=== PATIENT | male | born 1985 | race Caucasian/White ===

== ENCOUNTER 2018-07-17 18:32 | Emergency (ER) | payer OTHER ==
--- NOTE | 2018-07-17 19:37 | ERPHSYRPT ---
- History of Present Illness Time Seen by Provider: 07/17/18 19:24 Source: patient Exam Limitations: no limitations Patient Subjective Stated Complaint: right hand pain, thinks he hit it while working and may have broken it Triage Nursing Assessment: Pt stated that he hit his right hand at work with a sledge hammer, hand is swollen, pulses good, capillary refill good, hypertensive , rates pain 10/26 Physician History: 32-year-old white male arrives with complaint of pain in his right index finger and the second right metacarpal. Patient states he struck his hand with a hammer at home. Denies other complaints. Past medical history negative past surgical history hand surgery both hands after an engine fell on his hands Occurred: just prior to arrival (one hour prior to arriva) Method of Injury: direct blow (hit right hand was sledge hammer) Severity of Pain-Max: moderate Severity of Pain-Current: mild Extremities Pain Location: hand: right, 2nd finger: right Modifying Factors: Improves With: nothing Associated Symptoms: none Allergies/Adverse Reactions: No Known Drug Allergies Allergy (Verified 07/17/18 18:46) Home Medications: No Reportable Medications [No Reported Medications] 07/17/18 [History] Hx Tetanus, Diphtheria Vaccination/Date Given: No (2 years ago) - Review of Systems Constitutional: No Fever, No Chills Eyes: No Symptoms Ears, Nose, & Throat: No Symptoms Respiratory: No Cough, No Dyspnea Cardiac: No Chest Pain, No Edema, No Syncope Abdominal/Gastrointestinal: No Abdominal Pain, No Nausea, No Vomiting, No Diarrhea Genitourinary Symptoms: No Dysuria Musculoskeletal: Other (pain right hand right second finger) Skin: No Rash Neurological: No Dizziness, No Focal Weakness, No Sensory Changes Psychological: No Symptoms Endocrine: No Symptoms All Other Systems: Reviewed and Negative - Past Medical History Pertinent Past Medical History: No - Past Surgical History Past Surgical History: Yes Musculoskeletal: Orthopedic Surgery Other Surgical History: hand surgery on both hands due to an engine falling on them - Social History Smoking Status: Current every day smoker How long have you smoked: 14 years Exposure to second hand smoke: Yes Drug Use: none Patient Lives Alone: No - Nursing Vital Signs Nursing Vital Signs: Initial Vital Signs Temperature 98.3 F 07/17/18 18:36 Pulse Rate 79 07/17/18 18:36 Blood Pressure 155/103 07/17/18 18:36 O2 Sat by Pulse Oximetry 100 07/17/18 18:36 Pain Scale Pain Intensity 7 - Physical Exam General Appearance: mild distress Eyes, Ears, Nose, Throat Exam: moist mucous membranes Neck Exam: normal inspection Cardiovascular/Respiratory Exam: chest non-tender, normal breath sounds, regular rate/rhythm, no respiratory distress Abdominal Exam: non-tender, No guarding Back Exam: normal inspection, No vertebral tenderness Shoulder Exam: normal inspection, non-tender, no evidence of injury, normal ROM Elbow/Forearm Exam: normal inspection, non-tender, normal ROM Wrist Exam: normal inspection, non-tender, no evidence of injury Hand Exam: No normal inspection (right hand full range of motion, tender with palpation overlying the right distal second metacarpal and proximal right index finger) Neuro/Tendon Exam: normal sensation, normal motor functions Mental Status Exam: alert, oriented x 3, cooperative Skin Exam: normal color, warm, dry SpO2 Interpretation: normal (100%) SpO2: 100 - Radiology Exams Right Hand X-ray Interpretation: Interpreted by me (nondisplaced fracture distal right second proximal phalanx) Ordered Tests: Active Orders 24 hr Category Date Time Status HAND (MINIMUM 3 VIEWS) Stat Exams 07/17/18 18:51 Taken - Progress Progress: improved Progress Note: 07/17/18 19:36 32-year-old white male with history of bilateral hand fractures in the past. Arrives with complaint of pain in his right hand overlying the distal right second metacarpal and the proximal right second proximal phalanx he states he struck his hand with a sledgehammer. I've offered the patient pain medication he does not want any. X-ray on one view that shows what appears to be a oblique fracture running through the distal proximal phalanx of the index finger. Patient has full range of motion to all fingers sensation intact to all fingers good capillary refill to all fingers. Patient does not want any pain medications. Will go ahead and have nurse place a splint. . - Departure Departure Disposition: Home Clinical Impression: fracture right second proximal phalanx Condition: Fair Critical Care Time: No Referrals: Megan STAPLETON [Primary Care Provider] - Instructions: Finger Fracture Additional Instructions: Return home. Ice to right hand 24-48 hours. Advil every 6 hours as needed for pain. Follow-up with your family doctor or [facility] tomorrow morning at 8:30 AM. Return for acute distress or for severe symptoms. Your x-rays have been preliminarily read they will be reread tomorrow you will be notified if any discrepancies are noted.
[2018-07-17 19:50] VITALS: BP 144/102; PULSE 72; O2SAT 96
--- NOTE | 2018-07-18 08:39 | XRAY ---
Indication: 2nd finger crush injury. Comparison: None 3 views of the right hand obtained. No bony, articular, or soft tissue abnormalities.
== END 2018-07-17 19:53 | disposition home or self-care (01) ==
LOC: ED 18:32
DX: S62.610A Displaced fracture of proximal phalanx of right index finger, initial encounter for closed fracture (principal); M79.641 Pain in right hand; W22.8XXA Striking against or struck by other objects, initial encounter
CPT/HCPCS: 73130; 99283

== ENCOUNTER 2019-11-06 21:00 | Emergency (ER) | payer MEDICAID, OTHER ==
--- NOTE | 2019-11-06 21:03 | ERPHSYRPT ---
- History of Present Illness Time Seen by Provider: 11/06/19 21:03 Source: patient, family Exam Limitations: no limitations Physician History: This is a right-handed 34-year-old white male who punched a glass window prior to arrival. Patient punched through the glass window with his left hand. Patient's tetanus status is approximately 3 to 4 years old. Patient is refusing an x-ray of his left hand. There is oozing from 3 separate lacerations sites from his left hand. Occurred: just prior to arrival Method of Injury: direct blow (Punched a glass window and broke it) Quality: sharpness, stabbing Severity of Pain-Max: moderate Severity of Pain-Current: moderate Extremities Pain Location: wrist: left, hand: left Modifying Factors: Improves With: movement Associated Symptoms: none Allergies/Adverse Reactions: No Known Drug Allergies Allergy (Verified 11/06/19 21:14) Hx Tetanus, Diphtheria Vaccination/Date Given: No (2 years ago) Travel Risk - International Travel Have you traveled outside of the country in past 3 weeks: No - Coronavirus Screening Are you exhibiting any of the following symptoms?: No Close contact with a COVID-19 positive Pt in past 14-21 Days: No - Review of Systems Constitutional: No Symptoms Eyes: No Symptoms Ears, Nose, & Throat: No Symptoms Respiratory: No Symptoms Cardiac: No Symptoms Abdominal/Gastrointestinal: No Symptoms Genitourinary Symptoms: No Symptoms Musculoskeletal: Injury (Left hand and wrist) Skin: Other Neurological: No Symptoms (Laceration x3 left hand and wrist) Psychological: No Symptoms Endocrine: No Symptoms Hematologic/Lymphatic: No Symptoms Immunological/Allergic: No Symptoms All Other Systems: Reviewed and Negative - Past Medical History Pertinent Past Medical History: No Neurological History: No Pertinent History ENT History: No Pertinent History Cardiac History: No Pertinent History Respiratory History: No Pertinent History Endocrine Medical History: No Pertinent History Musculoskeletal History: No Pertinent History GI Medical History: No Pertinent History History: No Pertinent History Psycho-Social History: No Pertinent History Male Reproductive Disorders: No Pertinent History - Past Surgical History Past Surgical History: Yes Neuro Surgical History: No Pertinent History Cardiac: No Pertinent History Respiratory: No Pertinent History Gastrointestinal: No Pertinent History Genitourinary: No Pertinent History Musculoskeletal: Orthopedic Surgery Male Surgical History: No Pertinent History Other Surgical History: hand surgery on both hands due to an engine falling on them - Social History Smoking Status: Current every day smoker How long have you smoked: 14 years Exposure to second hand smoke: Yes Drug Use: none Patient Lives Alone: No - Nursing Vital Signs Nursing Vital Signs: Initial Vital Signs Temperature 98.4 F 11/06/19 21:04 Pulse Rate 74 11/06/19 21:04 Respiratory Rate 22 11/06/19 21:04 Blood Pressure 127/77 11/06/19 21:04 O2 Sat by Pulse Oximetry 97 11/06/19 21:04 Pain Scale Pain Intensity 10 - Physical Exam General Appearance: no apparent distress, alert, anxiety Eyes, Ears, Nose, Throat Exam: normal ENT inspection, moist mucous membranes Neck Exam: normal inspection, non-tender, supple, full range of motion Cardiovascular/Respiratory Exam: chest non-tender, no respiratory distress Abdominal Exam: non-tender Back Exam: normal inspection, normal range of motion, No CVA tenderness, No vertebral tenderness Shoulder Exam: normal inspection, non-tender, no evidence of injury, normal ROM Elbow/Forearm Exam: normal inspection, non-tender, no evidence of injury, normal ROM Wrist Exam: normal ROM, pain, soft tissue tenderness (Laceration measuring approximately 4 cm horizontally oriented. No evidence of tendon injury no evidence of foreign body. No active bleeding except for mild ooze from the skin edge. A second half centimeter laceration was present at the dorsal aspect of the proximal wrist. No foreign body mild sk) Hand Exam: normal ROM, laceration (Approximately 3 cm laceration to the ulnar aspect of the proximal palm. There is no foreign body no active bleeding.) Neuro/Tendon Exam: normal sensation, normal motor functions, normal tendon functions, responds to pain, no evidence tendon injury Mental Status Exam: alert, oriented x 3, cooperative Skin Exam: laceration SpO2 Interpretation: normal O2 Delivery: Room Air Procedures - Laceration/Wound Repair Left Wrist Wound Location: Left, wrist ( and left hand. Total of 3 lacerations are present. Total length is a proximally 7-1/2 cm.) Wound's Depth, Shape: superficial, linear, into subcut Wound Explored: clean (No foreign body in bloodless field to base.) Irrigated: Yes Hibiclens Prep: Yes Anesthesia: 1% Lidocaine Volume Anesthetic (ccs): 10 Wound Repaired With: sutures Suture Size/Type: 4-0, prolene Number of Sutures: 12 (A total of 12 Prolene sutures were placed.) Layer Closure?: No Sterile Dressing Applied?: Yes Progress: 11/06/19 21:55 No complications patient told procedure well. Patient refusing x-ray. - Course Nursing assessment & vital signs reviewed: Yes Ordered Tests: Medication Summary Discontinued Medications Generic Name Dose Route Start Last Admin Trade Name Han PRN Reason Stop Dose Admin Hydrocodone Bitart/Acetaminophen 1 tab 11/06/19 21:46 [place] 10/325 Mg Tablet PO 11/06/19 21:47 STAT ONE Lidocaine HCl Confirm 11/06/19 21:09 Xylocaine 1% Hcl 20 Ml Mdv Administered 11/06/19 21:10 Dose 10 ml .ROUTE .STK-MED ONE - Progress Progress: improved, pain not gone completely, re-examined Counseled pt/family regarding: diagnosis, need for follow-up - Departure Departure Disposition: Home Clinical Impression: Laceration of left hand, Laceration of left wrist Condition: Stable Critical Care Time: No Referrals: Megan STAPLETON [NON-STAFF PHY W/O PRIVILEGES] - Additional Instructions: Keep current dressing in place for 24 hours. After 24 hours may remove all the dressings and wash the sites with soap and water. After washing, place a thin layer of antibiotic ointment and redress the area. Suture removal in 8 to 10 days. Use Tylenol and ibuprofen for pain. Apply ice pack to the area 3 times a day for 3 days. Prescriptions: Hydrocodone/APAP 5/325 [[place] 5/325 mg] 1 each PO Q8H PRN PRN #5 tablet MDD 3 PRN Reason: Pain
[2019-11-06 21:09] VITALS: BP 127/77; PULSE 74; O2SAT 97
[2019-11-06] MEDS ORDERED: XYLOCAINE 1% HCL 20 ML MDV ONE (21:09)
[2019-11-06] MEDS ORDERED: NORCO 5/325 MG ONE (22:07)
[2019-11-06] MEDS ORDERED: Norco 10/325 MG Tablet ONE (22:07)
[2019-11-06] MEDS: Norco 10/325 MG Tablet PO ONE (22:08)
[2019-11-06] MEDS: NORCO 5/325 MG PO ONE (22:08)
[2019-11-06] MEDS ORDERED: BACIGUENT PACKET ONE (22:17)
[2019-11-06] MEDS: XYLOCAINE 1% HCL 20 ML MDV IJ ONE (22:18)
[2019-11-06] MEDS: BACIGUENT PACKET TP ONE (22:18)
== END 2019-11-06 22:28 | disposition home or self-care (01) ==
LOC: ED 21:00
DX: S61.412A Laceration without foreign body of left hand, initial encounter (principal); S61.512A Laceration without foreign body of left wrist, initial encounter; W25.XXXA Contact with sharp glass, initial encounter; Y93.89 Activity, other specified; Y92.89 Other specified places as the place of occurrence of the external cause
CPT/HCPCS: 12014; 96372; 99283; A9270-GY

== ENCOUNTER 2022-04-14 04:19 | Emergency (ER) | payer SELFPAY ==
--- NOTE | 2022-04-14 04:35 | ERPHSYRPT ---
- History of Present Illness Time Seen by Provider: 04/14/22 04:34 Source: patient Exam Limitations: no limitations Physician History: 36yo M presents to the ER w/ cough, congestion and sore throat for the past 3 days. He denies F/C/N/V, CP or SOB. He denies sick contacts. No otc meds tried. Timing/Duration: day(s) (3) Cough Quality/Degree: moderate, productive cough, sputum Possible Cause: unknown cause Modifying Factors: Improves With: activity, coughing, deep breath, exertion Associated Symptoms: fever, chills, chest pain/soreness, cough, No earache Allergies/Adverse Reactions: No Known Drug Allergies Allergy (Verified 04/14/22 04:24) Hx Tetanus, Diphtheria Vaccination/Date Given: No (2 years ago) Hx Influenza Vaccination/Date Given: No Hx Pneumococcal Vaccination/Date Given: No - Review of Systems Constitutional: Fever, Chills, Fatigue, Weakness Eyes: No Symptoms Ears, Nose, & Throat: Nose Congestion, Nose Discharge, Sinus Drainage, Throat Pain, Painful Swallowing, No Ear Pain, No Ear Discharge, No Hearing Changes Respiratory: Cough, No Dyspnea, No Dyspnea on Exertion ([place]), No Wheezing Cardiac: No Edema, No Orthopnea, No PND Abdominal/Gastrointestinal: Nausea, No Abdominal Pain, No Vomiting Genitourinary Symptoms: No Symptoms Musculoskeletal: No Symptoms Skin: No Symptoms Neurological: Irritability, Lethargy Psychological: No Symptoms - Past Medical History Pertinent Past Medical History: No Neurological History: No Pertinent History ENT History: No Pertinent History Cardiac History: No Pertinent History Respiratory History: No Pertinent History Endocrine Medical History: No Pertinent History Musculoskeletal History: No Pertinent History GI Medical History: No Pertinent History History: No Pertinent History Psycho-Social History: No Pertinent History Male Reproductive Disorders: No Pertinent History - Past Surgical History Past Surgical History: Yes Neuro Surgical History: No Pertinent History Cardiac: No Pertinent History Respiratory: No Pertinent History Gastrointestinal: No Pertinent History Genitourinary: No Pertinent History Musculoskeletal: Orthopedic Surgery Male Surgical History: No Pertinent History Other Surgical History: hand surgery on both hands due to an engine falling on them - Social History Smoking Status: Current every day smoker How long have you smoked: 14 years Exposure to second hand smoke: Yes Drug Use: none Patient Lives Alone: No - Nursing Vital Signs Nursing Vital Signs: Initial Vital Signs Temperature 99.8 F 04/14/22 04:25 Pulse Rate 91 H 04/14/22 04:25 Respiratory Rate 18 04/14/22 04:25 Blood Pressure 137/77 04/14/22 04:25 O2 Sat by Pulse Oximetry 99 04/14/22 04:25 Pain Scale Pain Intensity 3 - Physical Exam General Appearance: no apparent distress Eye Exam: PERRL/EOMI Ears, Nose, Throat Exam: TMs normal, pharyngeal erythema, No tonsillar exudate Neck Exam: non-tender, full range of motion, lymphadenopathy Respiratory Exam: rhonchi Cardiovascular Exam: regular rate/rhythm, capillary refill <2 sec, No murmur, No edema Gastrointestinal/Abdomen Exam: soft, No tenderness, No distention Extremity Exam: normal inspection, No tani's sign, No pedal edema Neurologic Exam: alert, oriented x 3, cooperative Skin Exam: normal color, warm, dry SpO2 Interpretation: normal O2 Delivery: Room Air - Course Nursing assessment & vital signs reviewed: Yes - Radiology Exams Chest X-ray Interpretation: Interpreted by me, Negative, No Pneumonia, Nml Heart Size, No Infiltrates Ordered Tests: Medication Summary Discontinued Medications Generic Name Dose Route Start Last Admin Trade Name Freq PRN Reason Stop Dose Admin Guaifenesin/Dextromethorphan 10 ml 04/14/22 05:01 04/14/22 05:20 Guaifenesin/D-Methorphan Hb 118 Ml Syrup PO 04/14/22 05:02 10 ml STAT ONE Administration Lab/Rad Data: Laboratory Result Diagrams 04/14/22 05:15 04/14/22 05:15 Laboratory Results 04/14/22 04/14/22 04/14/22 Range/Units 05:19 05:15 05:15 WBC (4.0-10.5) x10^3/uL RBC (4.1-5.6) x10^6/uL Hgb (12.5-18.0) g/dL Hct (42-50) % MCV (78-100) fL MCH (26-32) pg MCHC (32-36) g/dL RDW (11.5-14.0) % Plt Count (150-450) x10^3/uL MPV (7.5-11.0) fL Gran % (36.0-66.0) % Immature Gran % (Auto) (0.00-0.4) % Nucleat RBC Rel Count (0.00-0.1) % Eos # (Auto) (0-0.5) x10^3/uL Immature Gran # (Auto) (0.00-0.03) x10^3u/L Absolute Lymphs (auto) (1.0-4.6) x10^3/uL Absolute Monos (auto) (0.0-1.3) x10^3/uL Absolute Nucleated RBC (0.00-0.01) x10^3u/L Lymphocytes % (24.0-44.0) % Monocytes % (0.0-12.0) % Eosinophils % (0.00-5.0) % Basophils % (0.0-0.4) % Absolute Granulocytes (1.4-6.9) x10^3/uL Basophils # (0-0.4) x10^3/uL Sodium 137 (137-145) mmol/L Potassium 4.0 (3.5-5.1) mmol/L Chloride 105 (98-107) mmol/L Carbon Dioxide 27 (22-30) mmol/L Anion Gap 10.1 (5-15) MEQ/L BUN 13 (9-20) mg/dL Creatinine 0.84 (0.66-1.25) mg/dL Estimated GFR > 60.0 ML/MIN Glucose 141 H (74-106) mg/dL Lactic Acid 0.9 (0.4-2.0) Calcium 8.2 L (8.4-10.2) mg/dL Total Bilirubin 0.40 (0.2-1.3) mg/dL AST 25 (17-59) U/L ALT 21 (0-50) U/L Alkaline Phosphatase 75 (38-126) U/L Serum Total Protein 6.5 (6.3-8.2) g/dL Albumin 3.8 (3.5-5.0) g/dL Procalcitonin 0.032 (0.030-0.080) ng/mL Influenza Type A Ag (NEGATIVE) Influenza Type B Ag (NEGATIVE) RSV (PCR) (Negative) SARS-CoV-2 (PCR) (NEGATIVE) Group A Strep Antibody (NEGATIVE) 04/14/22 04/14/22 Range/Units 05:15 04:40 WBC 6.0 (4.0-10.5) x10^3/uL RBC 4.10 (4.1-5.6) x10^6/uL Hgb 12.1 L (12.5-18.0) g/dL Hct 36.8 L (42-50) % MCV 89.8 (78-100) fL MCH 29.5 (26-32) pg MCHC 32.9 (32-36) g/dL RDW 12.3 (11.5-14.0) % Plt Count 200 (150-450) x10^3/uL MPV 9.8 (7.5-11.0) fL Gran % 73.9 H (36.0-66.0) % Immature Gran % (Auto) 0.2 (0.00-0.4) % Nucleat RBC Rel Count 0.0 (0.00-0.1) % Eos # (Auto) 0.05 (0-0.5) x10^3/uL Immature Gran # (Auto) 0.01 (0.00-0.03) x10^3u/L Absolute Lymphs (auto) 0.90 L (1.0-4.6) x10^3/uL Absolute Monos (auto) 0.60 (0.0-1.3) x10^3/uL Absolute Nucleated RBC 0.00 (0.00-0.01) x10^3u/L Lymphocytes % 14.9 L (24.0-44.0) % Monocytes % 9.9 (0.0-12.0) % Eosinophils % 0.8 (0.00-5.0) % Basophils % 0.3 (0.0-0.4) % Absolute Granulocytes 4.46 (1.4-6.9) x10^3/uL Basophils # 0.02 (0-0.4) x10^3/uL Sodium (137-145) mmol/L Potassium (3.5-5.1) mmol/L Chloride (98-107) mmol/L Carbon Dioxide (22-30) mmol/L Anion Gap (5-15) MEQ/L BUN (9-20) mg/dL Creatinine (0.66-1.25) mg/dL Estimated GFR ML/MIN Glucose (74-106) mg/dL Lactic Acid (0.4-2.0) Calcium (8.4-10.2) mg/dL Total Bilirubin (0.2-1.3) mg/dL AST (17-59) U/L ALT (0-50) U/L Alkaline Phosphatase (38-126) U/L Serum Total Protein (6.3-8.2) g/dL Albumin (3.5-5.0) g/dL Procalcitonin (0.030-0.080) ng/mL Influenza Type A Ag POSITIVE (NEGATIVE) Influenza Type B Ag NEGATIVE (NEGATIVE) RSV (PCR) NEGATIVE (Negative) SARS-CoV-2 (PCR) NEGATIVE (NEGATIVE) Group A Strep Antibody NOT DETECTED (NEGATIVE) - Progress Progress: unchanged Air Movement: good Progress Note: Patient feels the same as initial exam. Labs and CXR unremarkable. He did test positive for influenza A, but is outside the window for Tamiflu. 04/14/22 06:12 Blood Culture(s) Obtained: No Antibiotics given: No Counseled pt/family regarding: lab results, diagnosis - Departure Departure Disposition: Home Clinical Impression: Influenza A Condition: Good Critical Care Time: No Referrals: DOCTOR,NO FAMILY [Primary Care Provider] - Follow up/PCP as directed Instructions: Flu, Adult (DC) Prescriptions: Codeine Sulfate 15 mg PO TID 7 Days #21 tablet MDD 360mg
[2022-04-14] MEDS ORDERED: Robitussin-Dm Syrup PO ONE (05:01)
[2022-04-14 05:11] LABS: Group A Strep NOT DETECTED (NEGATIVE)
[2022-04-14 05:21] LABS: Absolute Neutrophil Ct (ANC) 4.46 x10^3/uL (1.4-6.9); Basophil (Absolute #) 0.02 x10^3/uL (0-0.4); Eosinophil % 0.8 % (0.00-5.0); Eosinophil (Absolute #) 0.05 x10^3/uL (0-0.5); Hematocrit 36.8 % (42-50); Hemoglobin 12.1 g/dL (12.5-18.0); Lymphocytes % 14.9 % (24.0-44.0); Mean Cell Volume 89.8 fL (78-100); Mean Corpuscular Hemoglobin 29.5 pg (26-32); Mean Corpuscular Hgb Concent. 32.9 g/dL (32-36); Mean Platelet Volume 9.8 fL (7.5-11.0); Monocytes % 9.9 % (0.0-12.0); Neutrophil % 73.9 % (36.0-66.0); Platelet Count 200 x10^3/uL (150-450); Red Cell Distribution Width 12.3 % (11.5-14.0)
[2022-04-14 05:22] LABS: INFLUENZA B NEGATIVE (NEGATIVE); RESPIRATORY SYNCTIAL VIRUS NEGATIVE (Negative); SARS-CoV-2 Xpert Express NEGATIVE (NEGATIVE)
[2022-04-14 05:24] VITALS: PULSE 88
[2022-04-14 05:24] LABS: INFLUENZA A POSITIVE (NEGATIVE)
[2022-04-14 05:55] LABS: ALBUMIN 3.8 g/dL (3.5-5.0); ALKALINE PHOSPHATASE 75 U/L (38-126); ANION GAP 10.1 MEQ/L (5-15); BLOOD UREA NITROGEN 13 mg/dL (9-20); CHLORIDE 105 mmol/L (98-107); Calcium 8.2 mg/dL (8.4-10.2); Carbon Dioxide 27 mmol/L (22-30); Creatinine 1 0.84 mg/dL (0.66-1.25); EST GLOMERULAR FILTRATION RATE > 60.0 ML/MIN; Glucose 141 mg/dL (74-106); SGOT/AST 25 U/L (17-59); SGPT/ALT 21 U/L (0-50); SODIUM 137 mmol/L (137-145); Total Protein 6.5 g/dL (6.3-8.2)
[2022-04-14 06:09] VITALS: BP 123/65; O2SAT 94
--- NOTE | 2022-04-14 09:42 | XRAY ---
Indication: Productive cough and sore throat. Comparison: None PA/lateral chest hyperinflated and clear with incidental tiny calcified granulomas. Posterior gutter not included on lateral view. Heart not enlarged. Bony thorax intact with minimal degenerative changes. Impression: Nonacute limited hyperinflated chest with chronic features.
== END 2022-04-14 06:28 | disposition home or self-care (01) ==
LOC: ED 04:19
DX: J10.1 Influenza due to other identified influenza virus with other respiratory manifestations (principal); R05.9 Cough, unspecified; R50.9 Fever, unspecified; Z72.0 Tobacco use; Z79.891 Long term (current) use of opiate analgesic
CPT/HCPCS: 0241U; 36415; 71046; 80053; 83605; 84145; 85025; 87651; 94760; 99283; A9270-GY

== ENCOUNTER 2025-02-07 19:02 | Emergency (ER) | payer SELFPAY ==
[2025-02-07 19:18] VITALS: RESP 16; TEMP 98.3; O2SAT 98
--- NOTE | 2025-02-07 19:52 | ERPHSYRPT ---
- History of Present Illness Time Seen by Provider: 02/07/25 19:20 Source: patient Exam Limitations: no limitations Patient Subjective Stated Complaint: pt states that he had swelling behind his left knee for the past 6 months Triage Nursing Assessment: pt ambulated into the er; pt is axo x4; c/o posterior left knee swelling; pt denies pain and states pressure to left knee; slight swelling present to left knee; strong left pedal pulse; good ROM to LLE; no redness or streaking to LLE; skin PDW; no respiratory distress present; vitals wnl Physician History: 39-year-old male no significant past medical history presents to our ED for evaluation of pain to the posterior aspect of his left knee x 6 months. Pain described as a pressure sensation. No trauma no fever. Patient states it feels as though the area is swollen. No other symptomology. No chest pain or shortness of breath. No nausea vomiting or diaphoresis. No claudication symptomology. Patient declined pain medication Patient does not have a primary care provider so was here in our ED. -Significant other at bedside. They voiced no other complaints or concerns at this time. Portions of this note were created with voice recognition technology. There may be grammatical, spelling, punctuation or sound alike errors Timing/Duration: today Severity: mild Modifying Factors: Improves With: nothing Associated Symptoms: denies symptoms Allergies/Adverse Reactions: No Known Drug Allergies Allergy (Verified 02/07/25 19:09) Home Medications: No Reportable Medications [No Reported Medications] 02/07/25 [History] Hx Tetanus, Diphtheria Vaccination/Date Given: No Hx Influenza Vaccination/Date Given: No Hx Pneumococcal Vaccination/Date Given: No Travel Risk - International Travel Have you traveled outside of the country in past 3 weeks: No - Emerging Infectious Disease Are you exhibiting symptoms associated with any current EIDs: No - Review of Systems All Other Systems: Reviewed and Negative - Past Medical History Pertinent Past Medical History: No Neurological History: No Pertinent History ENT History: No Pertinent History Cardiac History: No Pertinent History Respiratory History: No Pertinent History Endocrine Medical History: No Pertinent History Musculoskeletal History: No Pertinent History GI Medical History: No Pertinent History History: No Pertinent History Psycho-Social History: No Pertinent History Male Reproductive Disorders: No Pertinent History - Past Surgical History Past Surgical History: Yes Neuro Surgical History: No Pertinent History Cardiac: No Pertinent History Respiratory: No Pertinent History Gastrointestinal: No Pertinent History Genitourinary: No Pertinent History Musculoskeletal: Orthopedic Surgery Male Surgical History: No Pertinent History Other Surgical History: hand surgery on both hands due to an engine falling on them - Social History Smoking Status: Smoker, status unknown How long have you smoked: 14 years Exposure to second hand smoke: No Drug Use: none - Social Determinants of Health Will the patient participate in the screening: Yes Do you worry about a steady place to live?: No Do you have any problems with any of the following?: No known problems In the past 12 months,have you had to go without utilities?: No Transportation Issues: No Has anyone in your support network made you feel unsafe?: No Have you or anyone in your house had to go w/o enough food: No - Nursing Vital Signs Nursing Vital Signs: Initial Vital Signs Pulse Rate 65 02/07/25 19:09 Blood Pressure 129/76 02/07/25 19:09 O2 Sat by Pulse Oximetry 97 02/07/25 19:09 Pain Scale Pain Intensity 1 - Physical Exam General Appearance: no apparent distress, alert Eye Exam: eyes nml inspection Ears, Nose, Throat Exam: normal ENT inspection Neck Exam: normal inspection, full range of motion Respiratory Exam: normal breath sounds, airway intact, No respiratory distress Cardiovascular Exam: regular rate/rhythm, normal peripheral pulses Gastrointestinal/Abdomen Exam: soft, normal bowel sounds, No tenderness, No mass Back Exam: normal inspection, normal range of motion, No CVA tenderness, No vertebral tenderness Extremity Exam: normal inspection, normal range of motion, pelvis stable, other (Fullness left posterior popliteal area overlying soft tissue intact. Patient neurovasc intact distally) Neurologic Exam: alert, oriented x 3, cooperative, normal mood/affect, sensation nml, No motor deficits Skin Exam: normal color, warm, dry, No rash Lymphatic Exam: No adenopathy SpO2 Interpretation: normal SpO2: 98 O2 Delivery: Room Air - Course Nursing assessment & vital signs reviewed: Yes - Radiology Ultrasound Exam Venous Lower Extremity Ultrasound: discussed w/radiologist (Per chemical operations specialist Huff's cyst observed. No DVT) Ordered Tests: Active Orders 24 hr Category Date Time Status VENOUS UNILAT/LIMITED EXTREMIT [US] Stat Exams 02/07/25 19:28 Taken - Progress Progress: improved Progress Note: 02/07/25 19:58 39-year-old male no significant past medical history presents to our ED for evaluation of pain to the posterior aspect of his left knee x 6 months. Pain described as a pressure sensation. No trauma no fever. Physical exam significant for a fullness of the left posterior popliteal region. Involved extremities neurovascular tact distally. Ultrasound left lower extremity shows a Huff's cyst. No DVT. Patient declined pain medication. Patient referred to orthopedic clinic for follow-up. Patient agrees to follow-up tomorrow as planned. Significant other at bedside. They voiced no other complaints or concerns at this time. History obtained from patient and significant other at bedside. Differential diagnosis includes Huff's cyst, DVT, muscle strain, ligamentous sprain Portions of this note were created with voice recognition technology. There may be grammatical, spelling, punctuation or sound alike errors Complexity of problems addressed is moderate acute complicated. No critical care time. Complex of data reviewed and analyzed is moderate. Test ordered test reviewed results analyzed and correlated clinically with history and p hysical exam. Risk of complication and or risk of morbidity/mortality of patient management is low. Vital stable. Time spent to discharge patient is approximately 10 minutes. Plan of care established for shared decision making. No social determinants of health present to impede follow-up. Portions of this note were created with voice recognition technology. There may be grammatical, spelling, punctuation or sound alike errors Counseled pt/family regarding: diagnosis, need for follow-up, rad results - Departure Departure Disposition: Home Clinical Impression: Huff's cyst of knee Condition: Stable Critical Care Time: No Referrals: DOCTOR,NO FAMILY [Primary Care Provider, UNKNOWN] - Follow up/PCP as directed BECCA MEJIAS MD [ACTIVE STAFF, FAMILY PRACTICE] - Follow up/PCP as directed Instructions: Huff's Cyst (DC) Additional Instructions: Discharge/Care Plan CKJUSTIN ANDERSON was seen on 02/07/25 in the Emergency Room. The patient was counseled regarding Diagnosis,Lab results, Imaging studies, need for follow up and when to return to the Emergency Room. Prescriptions given: Discharge Note I have spoken with the patient and/or caregivers. I have explained the patient's condition, diagnosis and treatment plan based on the information available to me at this time. I have answered the patient's and/or caregiver's questions and addressed any concerns. The patient and/or caregivers have as good understanding of the patient's diagnosis, condition and treatment plan as can be expected at this point. The vital signs have been stable. The patient's condition is stable and appropriate for discharge from the emergency department. The patient will pursue further outpatient evaluation with the primary care physician or other designated or consulting physician as outlined in the discharge instructions. The patient and/or caregivers are agreeable to this plan of care and follow-up instructions have been explained in detail. The patient and/or caregivers have received these instruction. The patient/and or caregivers are aware that any significant change in condition or worsening of symptoms should prompt an immediate return to this or the closest emergency department or call 911. Outpatient Orders: Ortho Referral Time Frame: 1 Day, Facility: [facility]. Hosp, Location: [facility]
[2025-02-07 19:53] VITALS: BP 114/80; PULSE 63
--- NOTE | 2025-02-08 08:43 | XRAY ---
Indication: Pain. Two-dimensional sonogram and color Doppler imaging major venous vessels left leg performed. Comparison: None No thrombus seen in the examined deep venous vessels left leg including greater saphenous vein. Veins demonstrate normal compressibility. Venous waveforms are normal with and without augmentation. Posterior knee demonstrates incidental 7.5 x 2.1 x 5.2 cm Huff's cyst. Impression: Left leg negative for DVT. Incidental Huff's cyst. Comment: Preliminary report was given.
== END 2025-02-07 19:58 | disposition home or self-care (01) ==
LOC: ED 19:02
DX: M71.22 Synovial cyst of popliteal space [Baker], left knee (principal); M25.562 Pain in left knee